=== PATIENT | female | born 1970 | race Caucasian/White ===

== ENCOUNTER 2017-05-26 02:41 | Emergency (ER) | payer BC ==
[2017-05-26] MEDS ORDERED: ONDANSETRON 4 MG/2 ML VIAL IVP STA (03:24)
[2017-05-26] MEDS ORDERED: SODIUM CHLORIDE 0.9% 500 ML IV STA (03:24)
[2017-05-26] MEDS ORDERED: diphenhydrAMINE 50 MG/ML 1 ML VIAL IVP STA (03:24)
[2017-05-26] MEDS ORDERED: methylPREDNISolone SOD SUCCI 250 MG in SODIUM CHLORIDE 0.9% 100 ML IVPB STA (03:24)
[2017-05-26] MEDS ORDERED: KETOROLAC 30 MG/ML 1 ML VIAL IVP STA (03:24)
[2017-05-26] MEDS ORDERED: HYDROmorphone 2 MG/ML 1 ML SYRINGE IVP STA (03:25)
--- NOTE | 2017-05-26 03:30 | ED ---
General Adult HPI - General Chief complaint: Headache Stated complaint: headache Time Seen by Provider: 05/26/17 02:51 Source: patient, RN notes reviewed, old records reviewed Mode of arrival: ambulatory Limitations: no limitations - History of Present Illness Initial comments: This is a 38-year-old female to the ER for evaluation headache. Patient has history of headache and migraine. Chronic migraines. Does take Imitrex on a weekly basis. Patient states his headache is just similar to her prior migraines. She is out of town from [place], recently was inpatient hospitalized for headaches and I will. Patient's Intal for today, had x-ray last night that persisted throughout the night. Mild nausea no vomiting throbbing headache. Patient again denies any recent trauma or fever - Related Data Allergies Allergy/AdvReac Type Severity Reaction Status Date / Time metoclopramide [From Reglan] Allergy Unknown Verified 05/26/17 02:48 Review of Systems ROS Statement: Those systems with pertinent positive or pertinent negative responses have been documented in the HPI. ROS Other: All systems not noted in ROS Statement are negative. Past Medical History Past Medical History: No Reported History History of Any Multi-Drug Resistant Organisms: None Reported Past Surgical History: Section Past Psychological History: No Psychological Hx Reported Smoking Status: Never smoker Past Alcohol Use History: None Reported Past Drug Use History: None Reported General Exam Limitations: no limitations General appearance: alert, in no apparent distress Head exam: Present: atraumatic, normocephalic, normal inspection Eye exam: Present: normal appearance, PERRL, EOMI. Absent: scleral icterus, conjunctival injection, periorbital swelling ENT exam: Present: normal exam, mucous membranes moist Neck exam: Present: normal inspection. Absent: tenderness, meningismus, lymphadenopathy Respiratory exam: Present: normal lung sounds bilaterally. Absent: respiratory distress, wheezes, rales, rhonchi, stridor Cardiovascular Exam: Present: normal rhythm, tachycardia, normal heart sounds. Absent: systolic murmur, diastolic murmur, rubs, gallop, clicks GI/Abdominal exam: Present: soft, normal bowel sounds. Absent: distended, tenderness, guarding, rebound, rigid Extremities exam: Present: normal inspection, full ROM, normal capillary refill. Absent: tenderness, pedal edema, joint swelling, calf tenderness Back exam: Present: normal inspection Neurological exam: Present: alert, oriented X3, CN II-XII intact Psychiatric exam: Present: normal affect, normal mood Skin exam: Present: warm, dry, intact, normal color. Absent: rash Course Vital Signs 05/26/17 02:45 Temperature 97.8 F Pulse Rate 108 H Respiratory 16 Rate Blood Pressure 122/80 O2 Sat by Pulse 95 Oximetry - Reevaluation(s) Reevaluation #1: 05/26/17 03:27 Patient headache at this point is much improved Medical Decision Making - Medical Decision Making 46 female the ER for evaluation patient is ER for evaluation of headache. Chronic migraine, headache resolved patient discharged Disposition Clinical Impression: Migraine Disposition: HOME SELF-CARE Condition: Good Instructions: Acute Headache (ED) Referrals: None,Stated [Primary Care Provider] - 1-2 days
[2017-05-26] MEDS ORDERED: PROCHLORPERAZINE 5 MG TAB PO STA (04:46)
[2017-05-26 04:49] VITALS: RESP 18
[2017-05-26 05:09] VITALS: BP 118/77; PULSE 100; TEMP 98
== END 2017-05-26 05:11 | disposition home or self-care (01) ==
LOC: EC 02:41
DX: G43.909 Migraine, unspecified, not intractable, without status migrainosus (principal); Z88.8 Allergy status to other drugs, medicaments and biological substances
CPT/HCPCS: 99284; 96365; 96375 ×4; S0183; J1170; J1200; J2930; J2405; J1885